=== PATIENT | female | born 1940 | race Caucasian/White ===

== ENCOUNTER 2017-06-03 05:32 | Emergency (ER) | payer MEDICARE, OTHER ==
[~2017-06-03] VITALS: Ht 160 cm; Wt 97.5 kg
[~2017-06-03 05:32] MED LIST: ALL DAY ALLERGY10 MG PO; ALLO100 PO; ASPI81CH PO; CALC.25 PO; CARV3.125 PO; CETI5 PO; CHOL10002 PO; COLCHICINE0.6 MG PO; Crestor20 MG PO; ELIQUIS5 MG PO; FURO40 PO; HYDR1TAB94 PO; NITR.4SL SL; NORTHERA100 MG PO; OXYC5 PO; Omeprazole20 M1 PO; ROSU10TA; VITAMIN B-121000 MCG PO
[2017-06-03 06:35] LABS: Calcium, Ionized (POC) 1.19 mmol/L (1.10-1.46); Chloride (POC) 98 mmol/L (98-108); Glucose (ISTAT POC) 107 mg/dL (70-99); Hemoglobin (POC) 13.3 g/dL (12.0-16.0); Potassium (POC) 3.9 mmol/L (3.5-5.5); Sodium (POC) 142 mmol/L (135-148); Total CO2 (POC) 30 mmol/L (21-32)
[2018-02-09] MEDS ORDERED: MIDO5 PO (05:18)
[2018-02-09] MEDS ORDERED: OXYC5 PO (05:20)
[2018-03-01] MEDS ORDERED: ACET325 PO (11:05)
[2018-03-01] MEDS ORDERED: Acidophilus La100 GM PO (11:06)
[2018-03-01] MEDS ORDERED: ONDA4ODT MM (11:07)
[2018-03-01] MEDS ORDERED: AMOCLA500 PO (11:08)
[2018-03-01] MEDS ORDERED: METR500 PO (11:08)
== END 2017-06-03 07:13 | disposition home or self-care (01) ==
LOC: ER 05:32
PROVIDERS: Emergency Medicine
DX: T82.42XA Displacement of vascular dialysis catheter, initial encounter (principal); N18.6 End stage renal disease; Z88.2 Allergy status to sulfonamides; Z88.1 Allergy status to other antibiotic agents; Z88.8 Allergy status to other drugs, medicaments and biological substances; Z88.5 Allergy status to narcotic agent; Z79.899 Other long term (current) drug therapy; Z79.82 Long term (current) use of aspirin; I25.10 Atherosclerotic heart disease of native coronary artery without angina pectoris; I48.91 Unspecified atrial fibrillation
CPT/HCPCS: 36415; 71046; 80047; 85014; 99283

== ENCOUNTER 2017-12-17 10:48 | Emergency (ER) | payer MEDICARE, OTHER ==
[~2017-12-17] VITALS: Ht 160 cm; Wt 101.2 kg
[2017-12-17 10:15] LABS: BASOPHILS ABSOLUTE AUTO 0.05 K/mm3 (0.00-0.23); BASOPHILS PERCENT AUTO 1 % (0-2); EOSINOPHILS ABSOLUTE AUTO 0.13 K/mm3 (0.00-0.68); EOSINOPHILS PERCENT AUTO 2 % (0-6); Hematocrit 36.4 % (33.0-51.0); Hemoglobin 11.3 g/dL (11.5-16.0); IMMATURE GRAN ABSOLUTE AUTO 0.14 K/mm3 (0.00-0.10); IMMATURE GRAN PERCENT AUTO 2 % (0-1); LYMPHOCYTES ABSOLUTE AUTO 2.07 K/mm3 (0.84-5.20); LYMPHOCYTES PERCENT AUTO 26 % (21-46); MONOCYTES PERCENT AUTO 6 % (4-13); Mean Corpuscular HGB 32.5 pg (26.0-34.0); Mean Corpuscular Volume 105 fL (80-100); Mean Platelet Volume 9.1 fL (9.1-12.4); NEUTROPHILS PERCENT AUTO 64 % (41-73); Platelet Count 238 K/mm3 (150-400); RDW Coefficient Variation 15.4 % (11.7-14.2); RDW Standard Deviation 58.6 fL (35.1-46.3); Red Blood Cell Count 3.48 M/mm3 (3.80-5.20); White Blood Cell Count 7.89 K/mm3 (4.00-11.30)
[2017-12-17 10:33] LABS: Alanine Aminotransfer (ALT/SGP 21 U/L (12-78); Albumin, Blood 2.5 g/dL (3.4-5.0); Albumin/Globulin Ratio 0.5 (0.8-1.8); Alk Phos 112 U/L (50-136); Amylase, Blood 81 U/L (25-115); Anion Gap 9 mmol/L (6-16); Aspartate Aminotrans (AST/SGOT 19 U/L (12-37); Bilirubin, Direct <0.1 mg/dL (0.0-0.3); Bilirubin, Indirect Unable to Calculate mg/dL (0.1-0.7); Bilirubin, Total 0.4 mg/dL (0.1-1.0); Blood Urea Nitrogen 30 mg/dL (8-24); Bun/Creatinine Ratio 9.3 (12.0-20.0); CO2, Blood 29 mmol/L (21-32); Calcium, Blood 9.2 mg/dL (8.5-10.1); Chloride, Blood 104 mmol/L (98-108); Creatinine, Blood 3.23 mg/dL (0.40-1.00); Glomerular Filtration Rate 15 (60-); Glucose, Blood 106 mg/dL (70-99); Phosphorus, Blood 2.8 mg/dL (2.5-4.9); Potassium, Blood 3.1 mmol/L (3.5-5.5); Sodium, Blood 142 mmol/L (136-145); Total Protein, Blood 7.5 g/dL (6.4-8.2)
[2017-12-17] MEDS ORDERED: Cipro500 MG PO (12:21)
[2017-12-17] MEDS ORDERED: Flagyl500 MG PO (12:21)
== END 2017-12-17 12:36 | disposition home or self-care (01) ==
LOC: ER 10:48
PROVIDERS: Internal Medicine Nephrology
DX: K57.32 Diverticulitis of large intestine without perforation or abscess without bleeding (principal); E11.22 Type 2 diabetes mellitus with diabetic chronic kidney disease; N18.9 Chronic kidney disease, unspecified; Z88.2 Allergy status to sulfonamides; Z88.1 Allergy status to other antibiotic agents; Z88.8 Allergy status to other drugs, medicaments and biological substances; Z88.5 Allergy status to narcotic agent; Z79.899 Other long term (current) drug therapy; Z79.82 Long term (current) use of aspirin; Z99.2 Dependence on renal dialysis
CPT/HCPCS: 36415; 74176; 80053; 82150; 82248; 83690; 84100; 85025; 99282

== ENCOUNTER 2018-04-06 15:31 | Inpatient (IN) | payer MEDICARE, OTHER ==
[~2018-04-06] VITALS: Ht 162.6 cm; Wt 103.9 kg
[~2018-04-06 15:31] MED LIST changes: +ACET325 PO; +AMOCLA500 PO; +Acidophilus La100 GM PO; +Cipro500 MG PO; +Flagyl500 MG PO; +METR500 PO; +MIDO5 PO; +ONDA4ODT MM
[2018-04-06 16:03] LABS: BASOPHILS ABSOLUTE AUTO 0.05 K/mm3 (0.00-0.23); BASOPHILS PERCENT AUTO 1 % (0-2); EOSINOPHILS PERCENT AUTO 2 % (0-6); Hematocrit 38.1 % (33.0-51.0); Hemoglobin 11.7 g/dL (11.5-16.0); IMMATURE GRAN ABSOLUTE AUTO 0.06 K/mm3 (0.00-0.10); IMMATURE GRAN PERCENT AUTO 1 % (0-1); LYMPHOCYTES ABSOLUTE AUTO 3.05 K/mm3 (0.84-5.20); LYMPHOCYTES PERCENT AUTO 32 % (21-46); MONOCYTES ABSOLUTE AUTO 0.71 K/mm3 (0.16-1.47); MONOCYTES PERCENT AUTO 7 % (4-13); Mean Corpuscular HGB 33.1 pg (26.0-34.0); Mean Corpuscular HGB Conc 30.7 g/dL (31.5-36.5); Mean Corpuscular Volume 108 fL (80-100); Mean Platelet Volume 9.2 fL (9.1-12.4); NEUTROPHILS ABSOLUTE AUTO 5.61 K/mm3 (1.96-9.15); NEUTROPHILS PERCENT AUTO 58 % (41-73); Platelet Count 171 K/mm3 (150-400); RDW Coefficient Variation 14.1 % (11.7-14.2); Red Blood Cell Count 3.53 M/mm3 (3.80-5.20); White Blood Cell Count 9.68 K/mm3 (4.00-11.30)
[2018-04-06 16:23] LABS: Albumin, Blood 3.1 g/dL (3.4-5.0); Albumin/Globulin Ratio 0.7 (0.8-1.8); Bilirubin, Total 0.4 mg/dL (0.1-1.0); Bun/Creatinine Ratio 13.7 (12.0-20.0); Calcium, Blood 9.2 mg/dL (8.5-10.1); Creatinine, Blood 3.5 mg/dL (0.40-1.00); Globulin, Blood 4.6 g/dL (2.2-4.0); Total Protein, Blood 7.7 g/dL (6.4-8.2)
[2018-04-06 16:35] LABS: Source, Urine Clean Catch
[2018-04-06 16:40] LABS: Bilirubin, Urine Neg (Neg); Blood, Urine 4+ (Neg); Glucose Qualitative, Urine Neg (Neg); Ketones, Urine Neg (Neg); Leukocyte Esterase, Urine 3+ (Neg); Nitrite, Urine Neg (Neg); Protein, Urine 2+ (Neg); Urobilinogen, Urine NORM (Normal)
[2018-04-06 16:46] LABS: Appearance, Urine Cloudy (Clear); Color, Urine Yellow (P-Yellow)
[2018-04-06 16:47] LABS: Bacteria Few /hpf; Squamous Epithelial Cells Few /hpf (Few); White Blood Cells, Urine TNTC /hpf (0-5)
[2018-04-07 00:47] LABS: Automated BF WBC Count 0.055 K/mm3 (0-999); Body Fluid WBC Count 55 /mm3 (0-999)
[2018-04-07 00:56] LABS: Appearance, Body Fluid Clear (Clear); Color, Body Fluid No color (None-Yellow); RBC Count, Body Fluid 1 /mm3 (0-0)
[2018-04-07 01:23] LABS: Total Cell Count, Body Fluid 100
[2018-04-07 05:02] LABS: Hematocrit 37.7 % (33.0-51.0); Hemoglobin 11.5 g/dL (11.5-16.0); Mean Corpuscular HGB 32.2 pg (26.0-34.0); Mean Corpuscular HGB Conc 30.5 g/dL (31.5-36.5); Mean Corpuscular Volume 106 fL (80-100); Mean Platelet Volume 9.7 fL (9.1-12.4); Platelet Count 183 K/mm3 (150-400); RDW Coefficient Variation 14.1 % (11.7-14.2); RDW Standard Deviation 54.3 fL (35.1-46.3); Red Blood Cell Count 3.57 M/mm3 (3.80-5.20); White Blood Cell Count 8.91 K/mm3 (4.00-11.30)
[2018-04-07 05:36] LABS: Anion Gap 9 mmol/L (6-16); Blood Urea Nitrogen 48 mg/dL (8-24); Bun/Creatinine Ratio 14.5 (12.0-20.0); CO2, Blood 25 mmol/L (21-32); Calcium, Blood 9.3 mg/dL (8.5-10.1); Chloride, Blood 106 mmol/L (98-108); Creatinine, Blood 3.32 mg/dL (0.40-1.00); Glomerular Filtration Rate 14 (60-); Glucose, Blood 98 mg/dL (70-99); Magnesium, Blood 2.1 mg/dL (1.6-2.4); Phosphorus, Blood 3.5 mg/dL (2.5-4.9); Potassium, Blood 4.4 mmol/L (3.5-5.5); Sodium, Blood 140 mmol/L (136-145)
[2018-04-08 04:58] LABS: Hematocrit 35.8 % (33.0-51.0)
[2018-04-08 05:15] LABS: Albumin, Blood 2.7 g/dL (3.4-5.0); Anion Gap 9 mmol/L (6-16); Blood Urea Nitrogen 42 mg/dL (8-24); Bun/Creatinine Ratio 12.7 (12.0-20.0); CO2, Blood 23 mmol/L (21-32); Calcium, Blood 9.1 mg/dL (8.5-10.1); Chloride, Blood 110 mmol/L (98-108); Creatinine, Blood 3.32 mg/dL (0.40-1.00); Glomerular Filtration Rate 14 (60-); Glucose, Blood 95 mg/dL (70-99); Magnesium, Blood 2.1 mg/dL (1.6-2.4); Phosphorus, Blood 3.2 mg/dL (2.5-4.9); Potassium, Blood 4.8 mmol/L (3.5-5.5); Sodium, Blood 142 mmol/L (136-145)
[2018-04-09 05:09] LABS: Hematocrit 34.5 % (33.0-51.0); Hemoglobin 10.7 g/dL (11.5-16.0)
[2018-04-09 05:32] LABS: Albumin, Blood 2.8 g/dL (3.4-5.0); Anion Gap 9 mmol/L (6-16); Blood Urea Nitrogen 22 mg/dL (8-24); Bun/Creatinine Ratio 8.9 (12.0-20.0); CO2, Blood 27 mmol/L (21-32); Calcium, Blood 8.7 mg/dL (8.5-10.1); Chloride, Blood 104 mmol/L (98-108); Creatinine, Blood 2.46 mg/dL (0.40-1.00); Glomerular Filtration Rate 20 (60-); Glucose, Blood 117 mg/dL (70-99); Phosphorus, Blood 3.2 mg/dL (2.5-4.9); Potassium, Blood 4.2 mmol/L (3.5-5.5); Sodium, Blood 140 mmol/L (136-145)
[2018-04-09 08:11] LABS: BASOPHILS ABSOLUTE AUTO 0.03 K/mm3 (0.00-0.23); BASOPHILS PERCENT AUTO 0 % (0-2); EOSINOPHILS PERCENT AUTO 0 % (0-6); Hematocrit 34.8 % (33.0-51.0); Hemoglobin 10.8 g/dL (11.5-16.0); IMMATURE GRAN ABSOLUTE AUTO 0.07 K/mm3 (0.00-0.10); IMMATURE GRAN PERCENT AUTO 1 % (0-1); LYMPHOCYTES PERCENT AUTO 17 % (21-46); MONOCYTES ABSOLUTE AUTO 0.53 K/mm3 (0.16-1.47); MONOCYTES PERCENT AUTO 6 % (4-13); Mean Corpuscular HGB 32.7 pg (26.0-34.0); Mean Corpuscular Volume 106 fL (80-100); NEUTROPHILS ABSOLUTE AUTO 6.98 K/mm3 (1.96-9.15); NEUTROPHILS PERCENT AUTO 77 % (41-73); Platelet Count 174 K/mm3 (150-400); RDW Standard Deviation 53.6 fL (35.1-46.3); White Blood Cell Count 9.11 K/mm3 (4.00-11.30)
[2018-04-10 05:10] LABS: BASOPHILS ABSOLUTE AUTO 0.04 K/mm3 (0.00-0.23); BASOPHILS PERCENT AUTO 1 % (0-2); EOSINOPHILS ABSOLUTE AUTO 0.13 K/mm3 (0.00-0.68); EOSINOPHILS PERCENT AUTO 2 % (0-6); Hematocrit 35.7 % (33.0-51.0); Hemoglobin 10.8 g/dL (11.5-16.0); IMMATURE GRAN ABSOLUTE AUTO 0.07 K/mm3 (0.00-0.10); IMMATURE GRAN PERCENT AUTO 1 % (0-1); LYMPHOCYTES ABSOLUTE AUTO 2.43 K/mm3 (0.84-5.20); LYMPHOCYTES PERCENT AUTO 32 % (21-46); MONOCYTES ABSOLUTE AUTO 0.69 K/mm3 (0.16-1.47); MONOCYTES PERCENT AUTO 9 % (4-13); Mean Corpuscular HGB Conc 30.3 g/dL (31.5-36.5); Mean Platelet Volume 9.6 fL (9.1-12.4); NEUTROPHILS ABSOLUTE AUTO 4.32 K/mm3 (1.96-9.15); NEUTROPHILS PERCENT AUTO 56 % (41-73); Platelet Count 146 K/mm3 (150-400); RDW Coefficient Variation 14.3 % (11.7-14.2); RDW Standard Deviation 57.4 fL (35.1-46.3); Red Blood Cell Count 3.27 M/mm3 (3.80-5.20); White Blood Cell Count 7.68 K/mm3 (4.00-11.30)
[2018-04-10 05:19] LABS: Mean Corpuscular Volume 109 fL (80-100)
[2018-04-10 05:26] LABS: Albumin, Blood 2.6 g/dL (3.4-5.0); Anion Gap 6 mmol/L (6-16); Blood Urea Nitrogen 26 mg/dL (8-24); Bun/Creatinine Ratio 10.8 (12.0-20.0); CO2, Blood 31 mmol/L (21-32); Calcium, Blood 8.2 mg/dL (8.5-10.1); Chloride, Blood 104 mmol/L (98-108); Creatinine, Blood 2.41 mg/dL (0.40-1.00); Glomerular Filtration Rate 21 (60-); Glucose, Blood 103 mg/dL (70-99); Phosphorus, Blood 3.2 mg/dL (2.5-4.9); Potassium, Blood 3.7 mmol/L (3.5-5.5); Sodium, Blood 141 mmol/L (136-145)
[2018-04-10] MEDS ORDERED: SACC250C PO (11:00)
[2018-04-10] MEDS ORDERED: Augmentin 875-1 EACH PO (11:01)
[2018-04-10] MEDS ORDERED: METR500 PO (11:01)
== END 2018-04-10 12:55 | disposition home or self-care (01) | DRG 673 ==
LOC: ER 15:31 → MEDS 20:43 → ENPENDDIS 04-10 09:48 → MEDS 04-10 12:55
PROVIDERS: Internal Medicine; Internal Medicine Nephrology; Nurse Practitioner Acute Care; Physician Assistant; Surgery
PROC: 02HV33Z Insertion of Infusion Device into Superior Vena Cava, Percutaneous Approach (ICD-10-PCS; 2018-04-08)
PROC: B5181ZA Fluoroscopy of Superior Vena Cava using Low Osmolar Contrast, Guidance (ICD-10-PCS; 2018-04-08)
PROC: 5A1D70Z Performance of Urinary Filtration, Intermittent, Less than 6 Hours Per Day (ICD-10-PCS; 2018-04-08)
PROC: 0JH63XZ Insertion of Tunneled Vascular Access Device into Chest Subcutaneous Tissue and Fascia, Percutaneous Approach (ICD-10-PCS; principal; 2018-04-08 10:30)
DX: I12.0 Hypertensive chronic kidney disease with stage 5 chronic kidney disease or end stage renal disease (principal); N18.6 End stage renal disease; K57.20 Diverticulitis of large intestine with perforation and abscess without bleeding; N32.1 Vesicointestinal fistula; K52.1 Toxic gastroenteritis and colitis; I95.9 Hypotension, unspecified; E11.22 Type 2 diabetes mellitus with diabetic chronic kidney disease; I48.0 Paroxysmal atrial fibrillation; E87.70 Fluid overload, unspecified; E88.09 Other disorders of plasma-protein metabolism, not elsewhere classified; R06.00 Dyspnea, unspecified; G89.29 Other chronic pain; M54.9 Dorsalgia, unspecified; I25.10 Atherosclerotic heart disease of native coronary artery without angina pectoris; B96.1 Klebsiella pneumoniae [K. pneumoniae] as the cause of diseases classified elsewhere; T36.1X5A Adverse effect of cephalosporins and other beta-lactam antibiotics, initial encounter; R60.0 Localized edema; D64.9 Anemia, unspecified; Y92.230 Patient room in hospital as the place of occurrence of the external cause; I25.2 Old myocardial infarction; Z95.5 Presence of coronary angioplasty implant and graft; Z85.118 Personal history of other malignant neoplasm of bronchus and lung; Z90.710 Acquired absence of both cervix and uterus; Z90.5 Acquired absence of kidney; Z79.899 Other long term (current) drug therapy; Z95.820 Peripheral vascular angioplasty status with implants and grafts; Z86.73 Personal history of transient ischemic attack (TIA), and cerebral infarction without residual deficits; Z90.49 Acquired absence of other specified parts of digestive tract; Z90.2 Acquired absence of lung [part of]; Z79.82 Long term (current) use of aspirin; Z88.2 Allergy status to sulfonamides; Z88.8 Allergy status to other drugs, medicaments and biological substances; Z88.5 Allergy status to narcotic agent; Z88.1 Allergy status to other antibiotic agents; Z99.2 Dependence on renal dialysis; Z87.442 Personal history of urinary calculi; Z90.722 Acquired absence of ovaries, bilateral; Z91.048 Other nonmedicinal substance allergy status; Z87.891 Personal history of nicotine dependence; Z22.39 Carrier of other specified bacterial diseases
CPT/HCPCS: 36415; 74176; 77001; 80048; 80053; 80069; 81001; 83735; 83993; 85014; 85018; 85025; 85027; 87070; 87077; 87086; 87186; 87205; 87493; 89051; 89055; 96365; 99285-25; C1750; J0696; J1644; J2370; J2405; J2543; J3010; J7030; J7050; J7120

== ENCOUNTER 2018-05-24 13:45 | Inpatient (IN) | payer MEDICARE, OTHER ==
[~2018-05-24] VITALS: Ht 162.6 cm; Wt 97.7 kg
[~2018-05-24 13:45] MED LIST changes: +Augmentin 875-1 EACH PO; +SACC250C PO
[2018-05-24] MEDS ORDERED: FURO40 PO (14:12)
[2018-05-24] MEDS ORDERED: CARV3.125 PO (14:13)
[2018-05-24] MEDS ORDERED: COLCHICINE0.6 MG PO (14:14)
[2018-05-24 14:18] LABS: BASOPHILS ABSOLUTE AUTO 0.06 K/mm3 (0.00-0.23); BASOPHILS PERCENT AUTO 1 % (0-2); EOSINOPHILS ABSOLUTE AUTO 0.21 K/mm3 (0.00-0.68); EOSINOPHILS PERCENT AUTO 3 % (0-6); Hematocrit 39.7 % (33.0-51.0); Hemoglobin 12.2 g/dL (11.5-16.0); IMMATURE GRAN ABSOLUTE AUTO 0.07 K/mm3 (0.00-0.10); IMMATURE GRAN PERCENT AUTO 1 % (0-1); LYMPHOCYTES ABSOLUTE AUTO 2.25 K/mm3 (0.84-5.20); LYMPHOCYTES PERCENT AUTO 26 % (21-46); MONOCYTES ABSOLUTE AUTO 0.71 K/mm3 (0.16-1.47); MONOCYTES PERCENT AUTO 8 % (4-13); Mean Corpuscular HGB 32.2 pg (26.0-34.0); Mean Corpuscular HGB Conc 30.7 g/dL (31.5-36.5); Mean Corpuscular Volume 105 fL (80-100); Mean Platelet Volume 9.2 fL (9.1-12.4); NEUTROPHILS ABSOLUTE AUTO 5.25 K/mm3 (1.96-9.15); NEUTROPHILS PERCENT AUTO 61 % (41-73); Platelet Count 197 K/mm3 (150-400); RDW Coefficient Variation 14.6 % (11.7-14.2); RDW Standard Deviation 56.8 fL (35.1-46.3); Red Blood Cell Count 3.79 M/mm3 (3.80-5.20); White Blood Cell Count 8.55 K/mm3 (4.00-11.30)
[2018-05-24 14:45] LABS: Alanine Aminotransfer (ALT/SGP 15 U/L (12-78); Albumin, Blood 3.2 g/dL (3.4-5.0); Albumin/Globulin Ratio 0.7 (0.8-1.8); Alk Phos 149 U/L (50-136); Anion Gap 10 mmol/L (6-16); Aspartate Aminotrans (AST/SGOT 16 U/L (12-37); Bilirubin, Total 0.7 mg/dL (0.1-1.0); Blood Urea Nitrogen 34 mg/dL (8-24); Bun/Creatinine Ratio 11.7 (12.0-20.0); CO2, Blood 25 mmol/L (21-32); Calcium, Blood 9.5 mg/dL (8.5-10.1); Chloride, Blood 107 mmol/L (98-108); Globulin, Blood 4.4 g/dL (2.2-4.0); Glomerular Filtration Rate 17 (60-); Glucose, Blood 97 mg/dL (70-99); Potassium, Blood 3.8 mmol/L (3.5-5.5); Sodium, Blood 142 mmol/L (136-145); Total Protein, Blood 7.6 g/dL (6.4-8.2); Troponin I <0.015 ng/mL (0.000-0.040)
--- NOTE | 2018-05-24 18:55 | NUR ---
PATIENT ADMIT THE PATIENT WAS ADMITTED TO THE MEDICAL FLOOR AT 1800 FOR SYNCOPAL EPISODES. THE PATIENT WAS SETTLED AND 2/3 OF THE ADMIT WAS COMPLETED.
[2018-05-25 07:26] LABS: BASOPHILS ABSOLUTE AUTO 0.05 K/mm3 (0.00-0.23); BASOPHILS PERCENT AUTO 1 % (0-2); EOSINOPHILS ABSOLUTE AUTO 0.16 K/mm3 (0.00-0.68); EOSINOPHILS PERCENT AUTO 3 % (0-6); Hematocrit 36.1 % (33.0-51.0); IMMATURE GRAN ABSOLUTE AUTO 0.06 K/mm3 (0.00-0.10); IMMATURE GRAN PERCENT AUTO 1 % (0-1); LYMPHOCYTES PERCENT AUTO 32 % (21-46); MONOCYTES ABSOLUTE AUTO 0.75 K/mm3 (0.16-1.47); MONOCYTES PERCENT AUTO 14 % (4-13); Mean Corpuscular HGB 32.2 pg (26.0-34.0); Mean Corpuscular HGB Conc 30.5 g/dL (31.5-36.5); Mean Corpuscular Volume 106 fL (80-100); Mean Platelet Volume 9.2 fL (9.1-12.4); NEUTROPHILS ABSOLUTE AUTO 2.75 K/mm3 (1.96-9.15); NEUTROPHILS PERCENT AUTO 49 % (41-73); Platelet Count 170 K/mm3 (150-400); RDW Coefficient Variation 14.6 % (11.7-14.2); RDW Standard Deviation 57.4 fL (35.1-46.3); Red Blood Cell Count 3.42 M/mm3 (3.80-5.20); White Blood Cell Count 5.57 K/mm3 (4.00-11.30)
[2018-05-25 07:44] LABS: Albumin, Blood 2.9 g/dL (3.4-5.0); Albumin/Globulin Ratio 0.7 (0.8-1.8); Bilirubin, Total 0.5 mg/dL (0.1-1.0); Bun/Creatinine Ratio 11.6 (12.0-20.0); Creatinine, Blood 2.94 mg/dL (0.40-1.00); Globulin, Blood 4.1 g/dL (2.2-4.0); Magnesium, Blood 2.3 mg/dL (1.6-2.4); Potassium, Blood 4.1 mmol/L (3.5-5.5)
[2018-05-25 07:48] LABS: Thyroid Stimulating Hormone 1.23 uIU/mL (0.360-4.800)
--- NOTE | 2018-05-25 07:55 | NUR ---
SHIFT SUMMARY PT A/O SBA TO BA. NO SYNCOPAL EPISODES NOTED ON SHIFT. 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 SHE WAS ABLE TO SLEEP THROUGH NIGHT. SCD'S IN PLACE. CALLING APPROPRIATELY. NO C/O PAIN. CALL LIGHT IN REACH
--- NOTE | 2018-05-25 14:15 | NUR ---
0930 WHEN ATTEMPTING TO FLUSH LINE IT WAS VERY PAINFUL FOR PATIENT. WILL BE REMOVED AND IF NEEDED, NEW IV REPLACED.
--- NOTE | 2018-05-25 15:18 | NUR ---
PER DOCTOR BROWN, IF PATIENTS SYSTOLIC BP DROPS BELOW 110 DROXIDOPA TO BE GIVEN 400MG BID PRN. ORDER WILL BE PLACED.
--- NOTE | 2018-05-25 18:08 | NUR ---
PATIENT HAS HAD NO COMPLAINTS THIS SHIFTS. SHE IS ALERT AND ORIENTED AND HAS BEEN A ONE ASSIST TO THE RESTROOM . NO CHANGES TO HER CONDITION .
[2018-05-26 05:24] LABS: Hematocrit 36.3 % (33.0-51.0); Hemoglobin 10.9 g/dL (11.5-16.0)
[2018-05-26 06:00] LABS: Albumin, Blood 2.9 g/dL (3.4-5.0); Anion Gap 10 mmol/L (6-16); Blood Urea Nitrogen 32 mg/dL (8-24); Bun/Creatinine Ratio 11.2 (12.0-20.0); CO2, Blood 23 mmol/L (21-32); Calcium, Blood 8.9 mg/dL (8.5-10.1); Chloride, Blood 110 mmol/L (98-108); Creatinine, Blood 2.85 mg/dL (0.40-1.00); Glomerular Filtration Rate 17 (60-); Glucose, Blood 114 mg/dL (70-99); Magnesium, Blood 2.2 mg/dL (1.6-2.4); Phosphorus, Blood 2.9 mg/dL (2.5-4.9); Potassium, Blood 3.7 mmol/L (3.5-5.5); Sodium, Blood 143 mmol/L (136-145)
--- NOTE | 2018-05-26 06:05 | NUR ---
SHIFT SUMMARY A/O SBA TO BSC OR BA. WHEN DOING ORTHOSTATIC BP WHEN STANDING PT GOT VERY LIGHTHEADED UPON STANDING QUICKLY SHE SAID. USING FLUTTER VALVE AND STILL HAS VERY PRODUCTIVE COUGH. C/O PAIN IN BACK AND MEDICATED PER EMAR. SHE WAS ABLE TO SLEEP OFF AND ON T/O NOC. CALL LIGHT IN REACH
--- NOTE | 2018-05-26 15:28 | NUR ---
Echocardiogram completed.
--- NOTE | 2018-05-26 20:15 | NUR ---
SUMMARY- PT A/O X3, USES CALL LIGHT, AMBULATES WALKER SBA TO BATHROOM. SLOW AND HUNCHES OVER, GRABBING TO FURNATURE ETC. PT HAD NO DIZZINESS COMPLAINTS ALL SHIFT. ORTHOSTATICS THIS AM WNL. HAD ECHO DONE. CARDIO CONSULT CALLED AND DR BURCIAGA CAME TO EVAL PT. MIDIDRINE DOSE INCREASED TO Q6. GIVEN ONE DOSE AT 1300 AFTER A BP OF 113/74- PULSE 90. PT INSISTED ON TAKING HER HOME MED AT THE SAME TIME. PT EATS SMALL PERCENTAGE OF MEALS, ALMOST NOTHING FOR DINNER. WAS SLEEPY AT 1700 AND JUST WANTED TO SLEEP. BECAME VERY DIZZY AT 1930 WHEN ORTHOSTATICS BEING PERFORMED. CODY SARABIA HAS TAKEN OVER CARE.
[2018-05-27 04:55] LABS: BASOPHILS ABSOLUTE AUTO 0.04 K/mm3 (0.00-0.23); BASOPHILS PERCENT AUTO 1 % (0-2); EOSINOPHILS ABSOLUTE AUTO 0.14 K/mm3 (0.00-0.68); EOSINOPHILS PERCENT AUTO 2 % (0-6); Hematocrit 38.8 % (33.0-51.0); Hemoglobin 11.6 g/dL (11.5-16.0); IMMATURE GRAN ABSOLUTE AUTO 0.07 K/mm3 (0.00-0.10); IMMATURE GRAN PERCENT AUTO 1 % (0-1); LYMPHOCYTES ABSOLUTE AUTO 2.11 K/mm3 (0.84-5.20); LYMPHOCYTES PERCENT AUTO 30 % (21-46); MONOCYTES ABSOLUTE AUTO 0.66 K/mm3 (0.16-1.47); MONOCYTES PERCENT AUTO 9 % (4-13); Mean Corpuscular HGB 31.7 pg (26.0-34.0); Mean Corpuscular HGB Conc 29.9 g/dL (31.5-36.5); Mean Corpuscular Volume 106 fL (80-100); Mean Platelet Volume 9.4 fL (9.1-12.4); NEUTROPHILS ABSOLUTE AUTO 3.99 K/mm3 (1.96-9.15); NEUTROPHILS PERCENT AUTO 57 % (41-73); Platelet Count 185 K/mm3 (150-400); RDW Coefficient Variation 14.6 % (11.7-14.2); RDW Standard Deviation 57.5 fL (35.1-46.3); Red Blood Cell Count 3.66 M/mm3 (3.80-5.20); White Blood Cell Count 7.01 K/mm3 (4.00-11.30)
[2018-05-27 05:29] LABS: Anion Gap 6 mmol/L (6-16); Blood Urea Nitrogen 35 mg/dL (8-24); Bun/Creatinine Ratio 11.7 (12.0-20.0); CO2, Blood 26 mmol/L (21-32); Calcium, Blood 8.9 mg/dL (8.5-10.1); Chloride, Blood 109 mmol/L (98-108); Glomerular Filtration Rate 16 (60-); Glucose, Blood 97 mg/dL (70-99); Magnesium, Blood 2.3 mg/dL (1.6-2.4); Phosphorus, Blood 3.9 mg/dL (2.5-4.9); Potassium, Blood 4.6 mmol/L (3.5-5.5); Sodium, Blood 141 mmol/L (136-145)
--- NOTE | 2018-05-27 07:08 | NUR ---
SHIFT SUMMARY PT C/O PAIN IN HEAD AND MEDICATED PER EMAR. PRODUCTIVE COUGH. SBA TO BSC AND ABLE TO HAVE BM. SHE WAS ABLE TO GET SOME SLEEP THROUGH OUT NIGHT. CALL LIGHT IN REACH
--- NOTE | 2018-05-27 11:54 | NUR ---
PATIENT PERMISSION STUDENT NURSE, CAROL HOOD, ON 05-27-18 RECEIVED PERMISSION FROM PATIENT TO PROVIDE CARE ON 05-28-18 CAROL HOOD
--- NOTE | 2018-05-27 17:34 | NUR ---
PATIENT HAS GIVEN ME PERMISSION TO GIVE CARE.
--- NOTE | 2018-05-27 17:49 | NUR ---
SHIFT SUMMARY PT'S BLOOD PRESSURE HAS BEEN LOW MOST OF THE SHIFT. PT HAS POSITIVE ORTHOSTATICS THIS SHIFT. MIDODRINE AND HOME MEDICATION GIVEN PER EMAR. THIS RN MEDICATED FOR PAIN X1 THIS SHIFT. PT C/O FEELING SHORT OF BREATH THIS EVENING. PT'S OXYGEN SATURATION 94% ON ROOM AIR AND PT CONTINUES TO HAVE COARSE LUNG SOUNDS. PT RECEIVED BREATHING TREATMENT TO HELP WITH BREATHING AND PAIN MEDICATION TO HELP WITH PAIN IN BACK AND HEAD. NO ACUTE CHANGES AT THIS TIME. CALL LIGHT IN REACH. BED ALARM ON FOR SAFETY. WILL CONTINUE TO MONITOR AND REPORT TO ONCOMING RN.
--- NOTE | 2018-05-28 04:45 | NUR ---
NOC SHIFT SUMMARY PT HAS BEEN PLEASANT AND COOPERATIVE WITH CARE. SHE DID HAVE ORTHO'S DONE THIS NIGHT AND WAS ORTHOSATIC AND DIZZY/WEAK UPON STANDING LATER IN THE NIGHT SHE WAS ABLE TO STAND AND WALK TO BATHROOM WITH WALKER AND STAND BY ASSIST. SHE VOIDED APPROX 225ML AND GOT BACK INTO BED. SCD'S REPLACED. AAOX4 RESP EVEN AND UNLABORED AT PRESENT. LAST BP 137/67 HR70. PT CURRENLTY SLEEPING RESTFULLY. WILL CONTINUE TO MONITOR.
[2018-05-28 05:29] LABS: Hemoglobin 10.9 g/dL (11.5-16.0)
[2018-05-28 05:51] LABS: Anion Gap 10 mmol/L (6-16); Blood Urea Nitrogen 43 mg/dL (8-24); Bun/Creatinine Ratio 13.5 (12.0-20.0); CO2, Blood 24 mmol/L (21-32); Calcium, Blood 8.8 mg/dL (8.5-10.1); Chloride, Blood 106 mmol/L (98-108); Creatinine, Blood 3.18 mg/dL (0.40-1.00); Glomerular Filtration Rate 15 (60-); Glucose, Blood 102 mg/dL (70-99); Magnesium, Blood 2.3 mg/dL (1.6-2.4); Sodium, Blood 140 mmol/L (136-145)
--- NOTE | 2018-05-28 17:05 | NUR ---
SHIFT SUMMARY PT HAD DIALYSIS THIS SHIFT. PT REPORTS FEELING TIRED AND WEAK AFTER DIALYSIS. PT CONTINUES TO HAVE POSITIVE ORTHOSTATIC BLOOD PRESSURES. NO NEED FOR PAIN MEDICATION THIS SHIFT. NO COMPLAINTS OF SHORTNESS OF BREATH THIS SHIFT. PT DECLINED TO WORK WITH PHYSICAL THERAPY THIS AFTERNOON. NO ACUTE CHANGES THIS SHIFT. CALL LIGHT IN REACH. WILL CONTINUE TO MONITOR AND REPORT TO ONCOMING RN.
[2018-05-29 04:27] LABS: Hematocrit 35.6 % (33.0-51.0)
[2018-05-29 04:44] LABS: Anion Gap 9 mmol/L (6-16); Blood Urea Nitrogen 32 mg/dL (8-24); CO2, Blood 28 mmol/L (21-32); Chloride, Blood 104 mmol/L (98-108); Creatinine, Blood 2.67 mg/dL (0.40-1.00); Glomerular Filtration Rate 18 (60-); Glucose, Blood 100 mg/dL (70-99); Magnesium, Blood 2.3 mg/dL (1.6-2.4); Phosphorus, Blood 3.6 mg/dL (2.5-4.9); Potassium, Blood 3.6 mmol/L (3.5-5.5); Sodium, Blood 141 mmol/L (136-145)
--- NOTE | 2018-05-29 05:21 | NUR ---
SHIFT SUMMARY PT IS A 77 Y/O WOMAN, ADMITTED FOR SYNCOPAL EPISODES. SHE IS A DIALYSIS PATIENT, WITH CHRONIC LOW BP, THOUGH HER VITALS WERE STABLE DURING THE NIGHT. SHE DENIED ANY COMPLAINTS OF PAIN, NAUSEA OR SOB, THOUGH DOES STILL REPORT SOME DIZZINESS ON STANDING. PT HAS HAD PREVIOUS POSITIVE ORTHOSTATIC BP. NO OTHER ACUTE CHANGES IN PT CONDITION NOTED. WILL CONTINUE TO MONITOR AND TREAT PER EMAR.
[2018-05-29] MEDS ORDERED: CALCIUM CITRAT1 EAC3 PO (09:32)
--- NOTE | 2018-05-29 16:56 | NUR ---
SHIFT SUMMARY PT HAS BEEN NPO THROUGH DAY FOR NEW PERMCATH PLACEMENT. CAMOUFLAGE ASSEMBLER REPORTED IT APPEARED TO BE COMING OUT AND DR. BROWN WANTED IT REPLACE. DR. ZARAGOZA IN TO SEE PT SOON AFTER TO EVALUATE. PT HAS BEEN UP TO BATHROOM WITH ASSISTANCE AND REPORTS SHE HAD A COUPLE EPISODES OF FEELING "A LITTLE DIZZY" BUT THAT WAS PRIOR TO RECEIVING BP ELEVATORS. [facility] EN ROUTE TO PICK PT UP FOR PLACEMENT. AT BEDSIDE THIS AFTERNOON.
--- NOTE | 2018-05-29 18:20 | NUR ---
PT BACK FROM CATH TO ROOM 360 LAB POST DIALYSIS CATHETER CHANGE OUT, PORTS HEPARNIZED PER ORDER, DRESSING/TAGADERM COVER OF CATH SITE, PT AWAKE AND ORIENTED.
--- NOTE | 2018-05-30 03:47 | NUR ---
SHIFT SUMMARY PT A&O, SITTING UP IN BED DURING SHIFT REPORT WITH FAMILY IN RM AT BS. ADMITTED FOR SYNCOPAL EPISODES; IMPROVING WITH MEDICATION MANAGEMENT. PT WITH ESRD, RECEIVING DIALYSIS TWICE A WEEK. NEW DIALYSIS CATH PLACED YESTERDAY. FISTULA IN KAI; NEVER USED. POSSIBLE D/C TODAY, AFTER DIALYSIS. MEDICATED PER EMAR FOR C/O CHRONIC BACK PAIN. EPISODE OF DIARRHEA AT START OF SHIFT; PARTIAL INCONTINENCE D/T URGENCY. PT ASSISTED WITH CLEANING. BSC PLACED AT ; NO FURTHER ISSUES REPORTED. JOHN MORALEZ ON PER ORDERS. ON TELE. CALL LT IN REACH. ABLE TO MAKE NEEDS KNOWN.
[2018-05-30 05:14] LABS: Hematocrit 36.4 % (33.0-51.0); Hemoglobin 11.2 g/dL (11.5-16.0)
[2018-05-30 05:52] LABS: Magnesium, Blood 2.4 mg/dL (1.6-2.4)
[2018-05-30 05:55] LABS: Anion Gap 8 mmol/L (6-16); Blood Urea Nitrogen 35 mg/dL (8-24); Bun/Creatinine Ratio 11.6 (12.0-20.0); CO2, Blood 28 mmol/L (21-32); Calcium, Blood 8.8 mg/dL (8.5-10.1); Chloride, Blood 105 mmol/L (98-108); Creatinine, Blood 3.02 mg/dL (0.40-1.00); Glomerular Filtration Rate 16 (60-); Glucose, Blood 93 mg/dL (70-99); Potassium, Blood 3.6 mmol/L (3.5-5.5); Sodium, Blood 141 mmol/L (136-145)
--- NOTE | 2018-05-30 06:10 | NUR ---
0220 was when i was in the pt's room to do vitals and i forgot to get a bed weight on her.
--- NOTE | 2018-05-30 17:36 | NUR ---
SHIFT SUMMARY PT 1 PERSON ASSIST WITH TRANSFERS AND SHORT AMBULATION TO COMMODE. REPORTS FEELING MORE DIZXZY WHEN SHE HOLD HER HEAD UP AND FEELS LIKE SHE IS FALLING BACKWARD. DID BECOME PALE AND DIZZY THIS AFTERNOON WHEN WORKING WITH P.T.A. AND IMMEDIATELY PUT BACK TO BED. MD IN ROOM AT THE TIME. HAD DIALYSIS TODAY. FLUID BOLUS INFUSING AT THIS TIME. KPAD APPLIED TO BACKDUE TO EXTREME PAIN UPON RETURN FROM DIALYSIS
[2018-05-31 05:57] LABS: Hematocrit 35.8 % (33.0-51.0); Hemoglobin 10.8 g/dL (11.5-16.0)
--- NOTE | 2018-05-31 06:21 | NUR ---
SHIFT SUMMARY: PM ORTHOSTATIC VITALS COMPLETED. BP DROPPED FROM 122/69 TO 105/63. PT REPORTED SOME DIZZINESS WITH THIS DROP, HOWEVER STATES SHE FEELS IT HAS IMPROVED. TELE NSR @ 93 PER TACO MAKER. RESPIRATIONS E/U, TOLERATING ROOM AIR. A&O X 4, 1 PERS SBA D/T SYNCOPIAL EPSIODES. PERMACATH TO R CHEST WALL C/D/I; PT PREFERS TO PROVIDE SITE CARE INDEPENDENTLY. NO PAIN MED ADMINSTERED FOR CHRONIC BACK PAIN, K PAD IN PLACE. 22G IN L HAND SALINE LOCKED. NO OTHER ACUTE CHANGES TO REPORT; WILL CONT TO MONITOR AND PROVIDE CARE UNTIL PRESUMED BY ONCOMING RN.
[2018-05-31 06:25] LABS: Albumin, Blood 2.9 g/dL (3.4-5.0); Anion Gap 7 mmol/L (6-16); Blood Urea Nitrogen 31 mg/dL (8-24); Bun/Creatinine Ratio 10.3 (12.0-20.0); CO2, Blood 27 mmol/L (21-32); Calcium, Blood 8.6 mg/dL (8.5-10.1); Chloride, Blood 107 mmol/L (98-108); Creatinine, Blood 3.01 mg/dL (0.40-1.00); Glomerular Filtration Rate 16 (60-); Glucose, Blood 109 mg/dL (70-99); Phosphorus, Blood 3.2 mg/dL (2.5-4.9); Potassium, Blood 3.8 mmol/L (3.5-5.5); Sodium, Blood 141 mmol/L (136-145)
--- NOTE | 2018-05-31 07:49 | NUR ---
ASSUMED CARE OF PT- BEDSIDE REPORT COMPLETE WITH NIGHT CODY SEBASTIAN. PER REPORT PT HAS Hx LUNG CAWITH RIGHT LOWER LOBECTOMY. 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 PT IS ALERT AND ORIENTED AND 1PA TO THE BATHROOM. PT STATED SHE WOULD LIKE TO HAVE A UA DONE SHE FEELS LIKE SHE IS GETTING A UTI. PT STATED HAVING ONLY ONE KIDNEY SHE WANTS TO AVOID KIDNEY INFECTION WHENEVER POSSIBLE. WILL ASK DR ON MORNING ROUNDS ABOUT AN ORDER FOR UA.
[2018-05-31 10:30] LABS: Source, Urine Clean Catch
[2018-05-31 10:43] LABS: Bilirubin, Urine Neg (Neg); Blood, Urine 4+ (Neg); Glucose Qualitative, Urine Neg (Neg); Ketones, Urine Neg (Neg); Leukocyte Esterase, Urine 3+ (Neg); Nitrite, Urine Neg (Neg); Protein, Urine 3+ (Neg); Urobilinogen, Urine NORM (Normal)
[2018-05-31 11:11] LABS: Appearance, Urine Hazy (Clear); Color, Urine Yellow (P-Yellow)
[2018-05-31 11:20] LABS: White Blood Cells, Urine TNTC /hpf (0-5)
[2018-05-31 11:21] LABS: Bacteria Many /hpf; Squamous Epithelial Cells Mod /hpf (Few)
[2018-05-31] MEDS ORDERED: BUDE.25 NEB (11:52)
[2018-05-31] MEDS ORDERED: CHOL10002 PO (11:53)
[2018-05-31] MEDS ORDERED: CEFU500T30 PO ×2 (14:12→14:21)
--- NOTE | 2018-05-31 15:59 | NUR ---
DISCHARGE NOTE- PT DISCHARGED HOME ON HOME HEALTH. PT SPOUSE PRESENT FOR DISCHARGE TEACHING. PT WAS GIVEN VERBAL AND WRITTEN DISCHARGE INSTRUCTIONS AND ACKNOWLEDGED UNDERSTANDING OF THEM. SPOKE TO PT AND SPOUSE ABOUT CHECKING BP PRIOR TO TAKING BP EFFECTING MEDICATIONS AND WHEN DR SAID NOT TO TAKE THEM. PT AWARE OF FOLLOW UP WITH PCP AND DR BROWN. NO FURTHER QUESTIONS AT THE TIME OF DISCHARGE, PT REFUSED STAFF ESCORT, SPOUSE BROUGHT HER "SCOOTER" UP AND SHE LEFT WITH HIM.
== END 2018-05-31 14:36 | disposition home health service (06) | DRG 312 ==
LOC: ER 13:45 → MEDS 13:46 → ENPENDDIS 05-31 11:00 → MEDS 05-31 11:01
PROVIDERS: Emergency Medicine; Internal Medicine; Internal Medicine Nephrology; ADMIT Internal Medicine
PROC: 0J2SXYZ Change Other Device in Head and Neck Subcutaneous Tissue and Fascia, External Approach (ICD-10-PCS; principal; 2018-05-29)
DX: I95.1 Orthostatic hypotension (principal); N18.6 End stage renal disease; N82.4 Other female intestinal-genital tract fistulae; K57.20 Diverticulitis of large intestine with perforation and abscess without bleeding; I12.0 Hypertensive chronic kidney disease with stage 5 chronic kidney disease or end stage renal disease; N25.81 Secondary hyperparathyroidism of renal origin; T82.41XA Breakdown (mechanical) of vascular dialysis catheter, initial encounter; I25.10 Atherosclerotic heart disease of native coronary artery without angina pectoris; I73.9 Peripheral vascular disease, unspecified; I48.0 Paroxysmal atrial fibrillation; Z90.5 Acquired absence of kidney; Z95.5 Presence of coronary angioplasty implant and graft; Z99.2 Dependence on renal dialysis; Z79.82 Long term (current) use of aspirin; Z86.73 Personal history of transient ischemic attack (TIA), and cerebral infarction without residual deficits; Z85.118 Personal history of other malignant neoplasm of bronchus and lung; Z95.820 Peripheral vascular angioplasty status with implants and grafts; Z87.891 Personal history of nicotine dependence; E86.9 Volume depletion, unspecified; E88.09 Other disorders of plasma-protein metabolism, not elsewhere classified; D63.1 Anemia in chronic kidney disease; M10.9 Gout, unspecified; Z90.79 Acquired absence of other genital organ(s); N34.2 Other urethritis; Z90.2 Acquired absence of lung [part of]; I34.0 Nonrheumatic mitral (valve) insufficiency; J44.9 Chronic obstructive pulmonary disease, unspecified
CPT/HCPCS: 36415; 36581; 71046; 72125; 74176; 80053; 80069; 81001; 82024; 82533; 83735; 83880; 84443; 84484; 85014; 85018; 85025; 87077; 87086; 87186; 93005; 93010; 93308; 93321; 93880; 94640; 94667; 94760; 96360; 96361; 96372; 97110; 97163; 97530; 99152; 99285-25; C1750; C1769; G0257; G0378; J1644; J2250; J7030; J7040

== ENCOUNTER → 2018-06-04 | Outpatient (CLI) | payer MEDICARE, OTHER ==
[~2018-06-04] MED LIST changes: +BUDE.25 NEB; +CALCIUM CITRAT1 EAC3 PO; +CEFU500T30 PO
== END ==
LOC: LAB SHORT 16:40 → LAB 16:40
DX: L08.9 Local infection of the skin and subcutaneous tissue, unspecified (principal)
CPT/HCPCS: 87070; 87205

== ENCOUNTER → 2018-06-20 | Outpatient (CLI) | payer MEDICARE, OTHER ==
[2018-06-20 12:08] LABS: Source, Urine Clean Catch
[2018-06-20 12:41] LABS: Appearance, Urine Hazy (Clear); Bilirubin, Urine Neg (Neg); Blood, Urine 3+ (Neg); Color, Urine Yellow (P-Yellow); Glucose Qualitative, Urine Neg (Neg); Ketones, Urine Neg (Neg); Leukocyte Esterase, Urine 3+ (Neg); Nitrite, Urine Neg (Neg); Protein, Urine 3+ (Neg); Urobilinogen, Urine NORM (Normal)
[2018-06-20 12:58] LABS: Bacteria Many /hpf; Squamous Epithelial Cells Few /hpf (Few); White Blood Cells, Urine TNTC /hpf (0-5)
== END | disposition home or self-care (01) ==
LOC: LAB 12:07 → LAB SHORT 12:07
PROVIDERS: Internal Medicine
DX: N39.0 Urinary tract infection, site not specified (principal)
CPT/HCPCS: 81001; 87077; 87086; 87186

== ENCOUNTER 2018-07-31 06:34 | Day surgery (SDC) | payer MEDICARE, OTHER ==
[~2018-07-31] VITALS: Ht 160 cm; Wt 91.3 kg
[~2018-07-31 06:34] MED LIST changes: +CALCIUM + D3 E1 EACH PO; +Midodrine HCl10 MG PO; +ZYRTEC10 M1 PO
== END 2018-07-31 08:54 | disposition home or self-care (01) ==
LOC: ORSCSDS 06:34
PROVIDERS: Ophthalmology
PROC: 08RK3JZ Replacement of Left Lens with Synthetic Substitute, Percutaneous Approach (ICD-10-PCS; principal; 2018-07-31 08:00)
DX: H25.12 Age-related nuclear cataract, left eye (principal); H21.81 Floppy iris syndrome; I10 Essential (primary) hypertension; I25.10 Atherosclerotic heart disease of native coronary artery without angina pectoris; Z87.891 Personal history of nicotine dependence; E66.01 Morbid (severe) obesity due to excess calories; Z68.35 Body mass index [BMI] 35.0-35.9, adult; Z86.73 Personal history of transient ischemic attack (TIA), and cerebral infarction without residual deficits
CPT/HCPCS: J2001; J2250; J3010; J3301; J7030; V2632

== ENCOUNTER 2018-11-13 08:33 | Day surgery (SDC) | payer MEDICARE, OTHER ==
[~2018-11-13] VITALS: Ht 160 cm; Wt 88.2 kg
--- NOTE | 2018-11-13 11:31 | NUR ---
11/13/18 1131 Vania Ortega V PT STATES SHE HAS SOME MILD ITCHING/DISCOMFORT INSIDE HER OPERATIVE EYE. NO REDNESS NOTED. PT EDUCATED ON TAKING OTC PAIN MEDS IF DISCOMFORT INCREASES AND TO CALL DR. ROSE IF IT GETS WORSE.
== END 2018-11-13 11:31 | disposition home or self-care (01) ==
LOC: ORSCSDS 08:33
PROVIDERS: Ophthalmology
PROC: 08RJ3JZ Replacement of Right Lens with Synthetic Substitute, Percutaneous Approach (ICD-10-PCS; principal; 2018-11-13 10:30)
DX: H25.11 Age-related nuclear cataract, right eye (principal); H21.81 Floppy iris syndrome; I10 Essential (primary) hypertension; N18.6 End stage renal disease; Z79.899 Other long term (current) drug therapy; E66.01 Morbid (severe) obesity due to excess calories; Z68.34 Body mass index [BMI] 34.0-34.9, adult
CPT/HCPCS: J2250; J3010; J3301; J7030; V2632

== ENCOUNTER 2018-11-17 20:44 | Emergency (ER) | payer MEDICARE, OTHER ==
[~2018-11-17] VITALS: Ht 160 cm; Wt 90.7 kg
[2018-11-17 21:14] LABS: Source, Urine Clean Catch
[2018-11-17 21:17] LABS: BASOPHILS ABSOLUTE AUTO 0.03 K/mm3 (0.00-0.23); BASOPHILS PERCENT AUTO 1 % (0-2); EOSINOPHILS ABSOLUTE AUTO 0.16 K/mm3 (0.00-0.68); EOSINOPHILS PERCENT AUTO 3 % (0-6); Hematocrit 35.9 % (33.0-51.0); IMMATURE GRAN ABSOLUTE AUTO 0.02 K/mm3 (0.00-0.10); IMMATURE GRAN PERCENT AUTO 0 % (0-1); LYMPHOCYTES ABSOLUTE AUTO 1.39 K/mm3 (0.84-5.20); LYMPHOCYTES PERCENT AUTO 26 % (21-46); MONOCYTES ABSOLUTE AUTO 0.38 K/mm3 (0.16-1.47); MONOCYTES PERCENT AUTO 7 % (4-13); Mean Corpuscular HGB 32.8 pg (26.0-34.0); Mean Corpuscular HGB Conc 30.6 g/dL (31.5-36.5); Mean Corpuscular Volume 107 fL (80-100); Mean Platelet Volume 9.1 fL (9.1-12.4); NEUTROPHILS ABSOLUTE AUTO 3.45 K/mm3 (1.96-9.15); NEUTROPHILS PERCENT AUTO 64 % (41-73); Platelet Count 200 K/mm3 (150-400); RDW Coefficient Variation 14.3 % (11.7-14.2); RDW Standard Deviation 55.8 fL (35.1-46.3); Red Blood Cell Count 3.35 M/mm3 (3.80-5.20); White Blood Cell Count 5.43 K/mm3 (4.00-11.30)
[2018-11-17 21:18] LABS: Bilirubin, Urine Neg (Neg); Blood, Urine 2+ (Neg); Glucose Qualitative, Urine 1+ (Neg); Ketones, Urine Neg (Neg); Leukocyte Esterase, Urine Neg (Neg); Nitrite, Urine Neg (Neg); Protein, Urine 3+ (Neg); Urobilinogen, Urine NORM (Normal)
[2018-11-17 21:25] LABS: Appearance, Urine Clear (Clear); Color, Urine Pale Yellow (P-Yellow)
[2018-11-17 21:27] LABS: White Blood Cells, Urine 0-2 /hpf (0-5)
[2018-11-17 21:28] LABS: Bacteria Few /hpf; Red Blood Cells, Urine 0-2 /hpf (0-2); Squamous Epithelial Cells Mod /hpf (Few)
[2018-11-17 21:33] LABS: International Normalized Ratio 0.97; Prothrombin Time Results 10.3 Sec (9.7-11.5)
[2018-11-17 21:39] LABS: Albumin, Blood 2.9 g/dL (3.4-5.0); Albumin/Globulin Ratio 0.7 (0.8-1.8); Bilirubin, Total 0.4 mg/dL (0.1-1.0); Bun/Creatinine Ratio 8.9 (12.0-20.0); Calcium, Blood 9.2 mg/dL (8.5-10.1); Creatinine, Blood 2.81 mg/dL (0.40-1.00); Globulin, Blood 3.9 g/dL (2.2-4.0); Potassium, Blood 4.5 mmol/L (3.5-5.5); Total Protein, Blood 6.8 g/dL (6.4-8.2)
[2018-11-18] MEDS ORDERED: Norco 5-325 Ta1 EACH PO (00:22)
== END 2018-11-18 00:30 | disposition home or self-care (01) ==
LOC: ER 20:44
PROVIDERS: Physician Assistant
DX: R10.84 Generalized abdominal pain (principal); Z88.2 Allergy status to sulfonamides; Z88.1 Allergy status to other antibiotic agents; Z88.8 Allergy status to other drugs, medicaments and biological substances; Z91.048 Other nonmedicinal substance allergy status; Z79.899 Other long term (current) drug therapy; Z88.5 Allergy status to narcotic agent; I25.10 Atherosclerotic heart disease of native coronary artery without angina pectoris; I48.0 Paroxysmal atrial fibrillation; I12.0 Hypertensive chronic kidney disease with stage 5 chronic kidney disease or end stage renal disease; N18.6 End stage renal disease; Z86.73 Personal history of transient ischemic attack (TIA), and cerebral infarction without residual deficits; Z87.891 Personal history of nicotine dependence
CPT/HCPCS: 36415; 74176; 80053; 81001; 85025; 85610; 85730; 86850; 86900; 86901; 93005; 93010; 99284-25; J7030

== ENCOUNTER 2020-03-25 21:36 | Observation (INO) | payer MEDICARE, OTHER ==
[~2020-03-25] VITALS: Ht 160 cm; Wt 74.0 kg
[~2020-03-25 21:36] MED LIST changes: +Norco 5-325 Ta1 EACH PO
[2020-03-25] MEDS ORDERED: HYDACE10B PO (22:44)
[2020-03-25 23:00] LABS: BASOPHILS ABSOLUTE AUTO 0.04 K/mm3 (0.00-0.23); BASOPHILS PERCENT AUTO 1 % (0-2); EOSINOPHILS ABSOLUTE AUTO 0.03 K/mm3 (0.00-0.68); EOSINOPHILS PERCENT AUTO 1 % (0-6); Hematocrit 35.4 % (33.0-51.0); Hemoglobin 10.1 g/dL (11.5-16.0); IMMATURE GRAN ABSOLUTE AUTO 0.04 K/mm3 (0.00-0.10); IMMATURE GRAN PERCENT AUTO 1 % (0-1); LYMPHOCYTES PERCENT AUTO 16 % (21-46); MONOCYTES ABSOLUTE AUTO 0.58 K/mm3 (0.16-1.47); MONOCYTES PERCENT AUTO 10 % (4-13); Mean Corpuscular HGB 29.6 pg (26.0-34.0); Mean Corpuscular HGB Conc 28.5 g/dL (31.5-36.5); Mean Corpuscular Volume 104 fL (80-100); Mean Platelet Volume 11.6 fL (9.1-12.4); NEUTROPHILS ABSOLUTE AUTO 4.17 K/mm3 (1.96-9.15); NEUTROPHILS PERCENT AUTO 72 % (41-73); Platelet Count 127 K/mm3 (150-400); RDW Coefficient Variation 18.3 % (11.7-14.2); RDW Standard Deviation 70.8 fL (35.1-46.3); Red Blood Cell Count 3.41 M/mm3 (3.80-5.20); White Blood Cell Count 5.76 K/mm3 (4.00-11.30)
[2020-03-25 23:14] LABS: Albumin, Blood 2.7 g/dL (3.4-5.0); Albumin/Globulin Ratio 0.7 (0.8-1.8); Bilirubin, Total 1.5 mg/dL (0.1-1.0); Bun/Creatinine Ratio 6.8 (12.0-20.0); Calcium, Blood 9.5 mg/dL (8.5-10.1); Creatinine, Blood 6.14 mg/dL (0.40-1.00); Globulin, Blood 3.9 g/dL (2.2-4.0); Potassium, Blood 5.3 mmol/L (3.5-5.5); Total Protein, Blood 6.6 g/dL (6.4-8.2); Troponin I 0.085 ng/mL (0.000-0.040)
[2020-03-25 23:15] LABS: Calcium, Ionized (POC) 1.21 mmol/L (1.10-1.46); Chloride (POC) 98 mmol/L (98-108); Creatinine (POC) 6.8 mg/dL (0.6-1.0); Glucose (ISTAT POC) 86 mg/dL (70-99); Hemoglobin (POC) 12.6 g/dL (12.0-16.0); Potassium (POC) 5.1 mmol/L (3.5-5.5); Sodium (POC) 132 mmol/L (135-148); Total CO2 (POC) 26 mmol/L (21-32)
--- NOTE | 2020-03-25 23:55 | NUR ---
PATIENT TO ER WITH C/O CHEST PAIN CONCURRENT WITH MISSED DIALYSIS APPOITMENTS DUE TO TRAVEL. HEMODIALYSIS ORDERED BY DR BROWN. DIALYSIS WILL COMMENCE SOON PATIENT TRANSFERRED TO FLOOR. WAIT TIME WILL BEGIN AT O100.
--- NOTE | 2020-03-26 03:19 | NUR ---
PCU ADMIT PT BROUGHT TO PCU-14 BY SEYMOUR FROM ER @ APPROX 0215. PT A&O X4. PT DENIES ABILITY TO STAND AND TRANSFER TO PCU BED, STATING "OH NO. I CAN'T STAND. I HAVEN'T WALKED IN WEEKS. I GET AROUND W/ AN ELECTRIC SCOOTER." PT SLID OVER FROM [facility] TO PCU BED. DIALYSIS NURSE W/ DIALYSIS MACHINE IN AWAITING PT ARRIVAL TO . PT SETTLED IN TO & DIALYSIS BEGAN VIA LCW PERMCATH. R ARM FISTULA NOTED THAT PT REPORTS NONFUCTIONING. PT REPORTS SKIN ITCHING T/O ENTIRE BODY. PT SCRATCHING AT SKIN & REPORTS ITCHING ONGOING FOR WEEKS W/ NO RELIEF. SCRATCHES & SCABS NOTED SCATTERED T/O. ALOE LOTION APPLIED W/ PT REPORT OF IMPROVEMENT.
[2020-03-26 06:33] LABS: BASOPHILS ABSOLUTE AUTO 0.02 K/mm3 (0.00-0.23); BASOPHILS PERCENT AUTO 0 % (0-2); EOSINOPHILS ABSOLUTE AUTO 0.01 K/mm3 (0.00-0.68); EOSINOPHILS PERCENT AUTO 0 % (0-6); Hemoglobin 9.8 g/dL (11.5-16.0); IMMATURE GRAN ABSOLUTE AUTO 0.03 K/mm3 (0.00-0.10); IMMATURE GRAN PERCENT AUTO 1 % (0-1); LYMPHOCYTES ABSOLUTE AUTO 0.68 K/mm3 (0.84-5.20); LYMPHOCYTES PERCENT AUTO 14 % (21-46); MONOCYTES ABSOLUTE AUTO 0.52 K/mm3 (0.16-1.47); MONOCYTES PERCENT AUTO 11 % (4-13); Mean Corpuscular HGB Conc 28.8 g/dL (31.5-36.5); Mean Corpuscular Volume 104 fL (80-100); Mean Platelet Volume 11.3 fL (9.1-12.4); NEUTROPHILS ABSOLUTE AUTO 3.62 K/mm3 (1.96-9.15); NEUTROPHILS PERCENT AUTO 74 % (41-73); NRBC ABSOLUTE 0.02 K/mm3 (0.00-0.02); NRBC Auto 0.4 /100 WBC (0.0-0.2); Platelet Count 115 K/mm3 (150-400); RDW Coefficient Variation 18.4 % (11.7-14.2); RDW Standard Deviation 70.6 fL (35.1-46.3); Red Blood Cell Count 3.27 M/mm3 (3.80-5.20); White Blood Cell Count 4.88 K/mm3 (4.00-11.30)
--- NOTE | 2020-03-26 06:43 | NUR ---
SHIFT SUMMARY DIALYSIS COMPLETE IN . NO FURTHER EVENTS OR CHANGES.
[2020-03-26 06:53] LABS: Albumin, Blood 2.7 g/dL (3.4-5.0); Albumin/Globulin Ratio 0.7 (0.8-1.8); Bilirubin, Total 1.9 mg/dL (0.1-1.0); Calcium, Blood 9.5 mg/dL (8.5-10.1); Creatinine, Blood 4.18 mg/dL (0.40-1.00); Globulin, Blood 3.8 g/dL (2.2-4.0); Magnesium, Blood 1.9 mg/dL (1.6-2.4); Phosphorus, Blood 3.6 mg/dL (2.5-4.9); Potassium, Blood 4.7 mmol/L (3.5-5.5); Total Protein, Blood 6.5 g/dL (6.4-8.2); Troponin I 0.08 ng/mL (0.000-0.040)
--- NOTE | 2020-03-26 08:52 | NUR ---
PT REFUSED MORNING MEDICATIONS, PT IS CONFUSED, PT REAMINS WITH PURSE CLUTCHED TO HER REFUSES TO PUT PURSE DOWN FOR BED BATH THAT IS BEING PERFORMED BY AID AND THIS RN
[2020-03-26 14:52] LABS: Troponin I 0.079 ng/mL (0.000-0.040)
--- NOTE | 2020-03-26 15:55 | NUR ---
PT D/C WITH ALL BELONGINGS WITH HER. PT AND FAMILY EXPRESSED UNDERSTANDING OF DC TEACHING, THEY ARE AWARE THAT THEY HAVE A DIALYSIS APPOINTMENT TOMORROW AT 1230. PT AND FAMILY DENY FURTHER QUESTIONS OR CONCERNS. IV REMOVED AND PRESSURE DRESSED
[2020-03-27 06:10] LABS: HBSAG SCREEN Negative (Negative); HEP A AB, IGM Negative (Negative); HEP B CORE AB, IGM Negative (Negative); HEP C VIRUS AB <0.1 (0.0-0.9)
== END 2020-03-26 16:02 | disposition home or self-care (01) ==
LOC: ER 21:36 → PCU 21:37
PROVIDERS: Emergency Medicine; Internal Medicine Nephrology; ADMIT Internal Medicine
DX: E87.70 Fluid overload, unspecified (principal); E87.5 Hyperkalemia; I13.2 Hypertensive heart and chronic kidney disease with heart failure and with stage 5 chronic kidney disease, or end stage renal disease; E11.22 Type 2 diabetes mellitus with diabetic chronic kidney disease; I50.33 Acute on chronic diastolic (congestive) heart failure; N18.6 End stage renal disease; D63.1 Anemia in chronic kidney disease; N25.81 Secondary hyperparathyroidism of renal origin; I48.0 Paroxysmal atrial fibrillation; E88.09 Other disorders of plasma-protein metabolism, not elsewhere classified; I25.10 Atherosclerotic heart disease of native coronary artery without angina pectoris; G89.29 Other chronic pain; M54.9 Dorsalgia, unspecified; Z95.5 Presence of coronary angioplasty implant and graft; Z86.73 Personal history of transient ischemic attack (TIA), and cerebral infarction without residual deficits; Z90.5 Acquired absence of kidney; Z87.891 Personal history of nicotine dependence; Z85.118 Personal history of other malignant neoplasm of bronchus and lung; Z88.1 Allergy status to other antibiotic agents; Z88.2 Allergy status to sulfonamides; Z88.5 Allergy status to narcotic agent; Z88.8 Allergy status to other drugs, medicaments and biological substances; Z91.048 Other nonmedicinal substance allergy status; Z79.899 Other long term (current) drug therapy; Z99.2 Dependence on renal dialysis; Z23 Encounter for immunization
CPT/HCPCS: 36415; 71045; 80047; 80053; 80074; 82550; 83735; 84100; 84484; 85014; 85025; 86317; 93005; 93010; 96374; 96375; 99285-25; G0257; J0881; J1885

== ENCOUNTER 2020-03-31 23:48 | Emergency (ER) | payer MEDICARE, OTHER ==
[~2020-03-31] VITALS: Ht 160 cm; Wt 73.5 kg
[~2020-03-31 23:48] MED LIST changes: +HYDACE10B PO
[2020-04-01 00:53] LABS: BASOPHILS ABSOLUTE AUTO 0.01 K/mm3 (0.00-0.23); BASOPHILS PERCENT AUTO 0 % (0-2); EOSINOPHILS PERCENT AUTO 0 % (0-6); Hematocrit 32.3 % (33.0-51.0); Hemoglobin 9.1 g/dL (11.5-16.0); IMMATURE GRAN ABSOLUTE AUTO 0.04 K/mm3 (0.00-0.10); IMMATURE GRAN PERCENT AUTO 1 % (0-1); LYMPHOCYTES ABSOLUTE AUTO 0.44 K/mm3 (0.84-5.20); LYMPHOCYTES PERCENT AUTO 8 % (21-46); MONOCYTES ABSOLUTE AUTO 0.42 K/mm3 (0.16-1.47); MONOCYTES PERCENT AUTO 8 % (4-13); Mean Corpuscular HGB 29.5 pg (26.0-34.0); Mean Corpuscular HGB Conc 28.2 g/dL (31.5-36.5); Mean Corpuscular Volume 105 fL (80-100); NEUTROPHILS ABSOLUTE AUTO 4.54 K/mm3 (1.96-9.15); NEUTROPHILS PERCENT AUTO 83 % (41-73); Platelet Count 153 K/mm3 (150-400); RDW Coefficient Variation 18.6 % (11.7-14.2); RDW Standard Deviation 71.7 fL (35.1-46.3); Red Blood Cell Count 3.08 M/mm3 (3.80-5.20); White Blood Cell Count 5.45 K/mm3 (4.00-11.30)
[2020-04-01 01:14] LABS: Albumin, Blood 2.6 g/dL (3.4-5.0); Albumin/Globulin Ratio 0.7 (0.8-1.8); Bun/Creatinine Ratio 8.1 (12.0-20.0); Calcium, Blood 9.5 mg/dL (8.5-10.1); Creatinine, Blood 4.79 mg/dL (0.40-1.00); Globulin, Blood 3.9 g/dL (2.2-4.0); Magnesium, Blood 1.8 mg/dL (1.6-2.4); Potassium, Blood 4.7 mmol/L (3.5-5.5); Total Protein, Blood 6.5 g/dL (6.4-8.2); Troponin I 0.091 ng/mL (0.000-0.040)
[2020-04-01 02:02] LABS: Influenza A, PCR Negative (NEGATIVE); Influenza B, PCR Negative (NEGATIVE); Resp Syncytial Virus, PCR Negative (NEGATIVE); SARS-Cov-2 (COVID-19) PCR, MMC Negative (NEGATIVE)
== END 2020-04-01 03:03 | disposition home or self-care (01) ==
LOC: ER 23:48
PROVIDERS: Emergency Medicine
DX: R07.9 Chest pain, unspecified (principal); R91.8 Other nonspecific abnormal finding of lung field; R06.00 Dyspnea, unspecified; D64.9 Anemia, unspecified; R79.89 Other specified abnormal findings of blood chemistry; I25.10 Atherosclerotic heart disease of native coronary artery without angina pectoris; I12.0 Hypertensive chronic kidney disease with stage 5 chronic kidney disease or end stage renal disease; E11.22 Type 2 diabetes mellitus with diabetic chronic kidney disease; N18.6 End stage renal disease; E11.51 Type 2 diabetes mellitus with diabetic peripheral angiopathy without gangrene; I48.0 Paroxysmal atrial fibrillation; Z20.828 Contact with and (suspected) exposure to other viral communicable diseases; Z88.2 Allergy status to sulfonamides; Z91.09 Other allergy status, other than to drugs and biological substances; Z88.1 Allergy status to other antibiotic agents; Z88.4 Allergy status to anesthetic agent; Z88.8 Allergy status to other drugs, medicaments and biological substances; Z79.899 Other long term (current) drug therapy; Z95.5 Presence of coronary angioplasty implant and graft; Z99.2 Dependence on renal dialysis; Z86.73 Personal history of transient ischemic attack (TIA), and cerebral infarction without residual deficits
CPT/HCPCS: 0241U; 71045; 71260; 80053; 83735; 83880; 84484; 85025; 85379; 93005; 93010; 99285-25; Q9967

== ENCOUNTER 2020-04-06 11:04 | Emergency (ER) | payer MEDICARE, OTHER ==
[~2020-04-06] VITALS: Ht 157.5 cm; Wt 59.0 kg
[2020-04-06] MEDS ORDERED: BISA5EC PO (11:53)
[2020-04-06] MEDS ORDERED: CYCL10 PO (11:54)
[2020-04-06] MEDS ORDERED: Crestor20 MG PO (11:54)
[2020-04-06] MEDS ORDERED: FURO40 PO (11:55)
[2020-04-06] MEDS ORDERED: MIDO5 PO (11:55)
[2020-04-06 12:35] LABS: Calcium, Ionized (POC) 1.09 mmol/L (1.10-1.46); Chloride (POC) 89 mmol/L (98-108); Creatinine (POC) 2.8 mg/dL (0.6-1.0); Glucose (ISTAT POC) 96 mg/dL (70-99); Hemoglobin (POC) 9.9 g/dL (12.0-16.0); Potassium (POC) 4.1 mmol/L (3.5-5.5); Sodium (POC) 132 mmol/L (135-148); Total CO2 (POC) 36 mmol/L (21-32)
== END 2020-04-06 13:00 | disposition home or self-care (01) ==
LOC: ER 11:04
PROVIDERS: Emergency Medicine
DX: R41.82 Altered mental status, unspecified (principal); E11.22 Type 2 diabetes mellitus with diabetic chronic kidney disease; N18.6 End stage renal disease; R55 Syncope and collapse; Z99.2 Dependence on renal dialysis; Z88.2 Allergy status to sulfonamides; Z91.09 Other allergy status, other than to drugs and biological substances; Z88.5 Allergy status to narcotic agent; Z88.8 Allergy status to other drugs, medicaments and biological substances; Z88.1 Allergy status to other antibiotic agents; Z95.5 Presence of coronary angioplasty implant and graft; Z79.899 Other long term (current) drug therapy; Z87.891 Personal history of nicotine dependence
CPT/HCPCS: 70450; 80047; 82947; 85014; 93005; 93010; 96374; 96375; 99285-25; J2405

== ENCOUNTER 2020-05-30 20:29 | Day surgery (SDC) | payer MEDICARE, OTHER ==
[~2020-05-30 20:29] MED LIST changes: +BISA5EC PO; +CYCL10 PO
== END 2020-06-28 22:52 | disposition home or self-care (01) ==
LOC: TRN 20:29 → LAB 20:29 → ATC 05-31 07:27 → LAB 05-31 07:27
DX: N18.6 End stage renal disease (principal); D64.9 Anemia, unspecified
CPT/HCPCS: 86850; 86900; 86901; 86923; J7050